=== PATIENT | female | born 1980 | race African-American/Black ===

== ENCOUNTER → 2016-10-12 | Outpatient (CLI) | payer MEDICAID ==
[2016-10-12 12:15] LABS: HEMATOCRIT 35.7 % (36.0-47.0); HEMOGLOBIN 11.9 g/dL (12.0-15.5); MEAN CORPUSCULAR HGB CONC 33.2 g/dL (32.0-36.0); MEAN CORPUSCULAR VOLUME 87 fl (80-97); RED CELL DISTRIBUTION WIDTH 16.4 % (11.5-14.0); WHITE BLOOD COUNT 6.6 10^3/uL (4.0-10.5)
[2016-10-12 12:33] LABS: ASPARTATE AMINO TRANSFERASE 20 U/L (14-36); CREATININE RESULT 0.46 mg/dL (0.52-1.25); LDH 318 U/L (313-618); URIC ACID 4.1 mg/dL (2.5-7.0)
== END ==
LOC: OD 11:21
PROVIDERS: ATTEND Registered Nurse Women's Health Care, Ambulatory
DX: O09.293 Supervision of pregnancy with other poor reproductive or obstetric history, third trimester (principal)
CPT/HCPCS: 36415; 82565; 83615; 84450; 84550; 85027

== ENCOUNTER 2016-10-16 12:24 | Outpatient (CLI) | payer MEDICAID ==
--- NOTE | 2016-10-16 16:01 | L&D Flow Sheet ---
LD Flowsheet Datetime Report Generated by CPN: 10/16/2016 16:00 Datetime: 10/16/2016 15:07 Communication: Report Given to @ Dr. Allen (Trinh Hitchcock RN) Communication Comments: Dr. Allen on unit reviewed OB history and reviewed FHT strip. Orders received if BPP 8/8, patient may be discharged home to self care and followup as previously scheduled. (Trinh Hitchcock RN) Communication Comments: Patient off unit to ultrasound via wheelchair (Trinh Hitchcock RN) Datetime: 10/16/2016 15:00 Monitor Mode: External (Trinh Naldo, RN) Frequency (min): x1 (Trinh Naldo, RN) Quality: Mild (Trinh [place], RN) Duration (sec): 50 (Trinh Naldo, RN) Resting Tone (Palpate): Relaxed (Trinh [place], RN) Contraction Comments: irregular (Trinh Naldo, RN) Monitor Mode: External US (Trinh [place], RN) FHR Baseline Rate : 140 (Trinh [place], RN) FHR Baseline Changes: No Baseline Change (Trinh [place], RN) Variability: Moderate 6-25 bpm (Trinh [place], RN) Accelerations: 15X15 (Trinh [place], RN) Decelerations: None (Trinh [place], RN) Datetime: 10/16/2016 14:31 Stage of : OB Triage (Trinh Hitchcock, RN) NBP Sys/Gayatri/Mean (mmHg): 120 (QS system process) : 75 (QS system process) : 93 (QS system process) Pulse: 85 (QS system process) Respirations: 16 (Trinh Naldo, RN) LaborFlag: OB Triage (QS system process) Datetime: 10/16/2016 14:30 Monitor Mode: External (Trinh [place], RN) Frequency (min): none (Trinh [place], RN) Resting Tone (Palpate): Relaxed (Trinh [place], RN) Contraction Comments: patient denies (Trinh [place], RN) Monitor Mode: External US (Trinh Hitchcock, RN) FHR Baseline Rate : 135 (Trinh [place], RN) FHR Baseline Changes: No Baseline Change (Trinh [place], RN) Variability: Moderate 6-25 bpm (Trinh [place], RN) Accelerations: 10X10 (Trinh [place], RN) Decelerations: None (Trinhtom Hitchcock, RN) Comments: reports positive movement (Trinh Hitchcock, RN) Datetime: 10/16/2016 14:29 IV/Blood Work: IV Started; IV Bolus Started; New IV Bag Hung; IV Bag Number @ 1 (Trinh Hitchcock, RN) Patient Position/Activity: Right Tilt; Semi-Fowlers (Trinh Hitchcock, RN) Datetime: 10/16/2016 14:00 Monitor Mode: External; Palpation (Trinh Hitchcock, JOHNNIE) Frequency (min): none (Trinh Hitchcock, RN) Resting Tone (Palpate): Relaxed (Trinh Hitchcock, RN) Contraction Comments: patient denies contractions. no contractions noted (Trinh Hitchcock, RN) Monitor Mode: External US (Trinh Hitchcock, RN) FHR Baseline Rate : 140 (Trinh Hitchcock, RN) FHR Baseline Changes: No Baseline Change (Trinh Hitchcock, RN) Variability: Moderate 6-25 bpm (Trinh Hitchcock, RN) Accelerations: 10X10 (Trinh Hitchcock, RN) Decelerations: None (Trinh Hitchcock, RN) Datetime: 10/16/2016 13:31 Stage of : OB Triage (Trinh Hitchcock RN) Provider Reviewed Strip: Yes (Trinh Hitchcock RN) Communication: RN Reviewed Strip; Report Given to @ Svitlana Mariano CNM (Trinh Hitchcock, RN) Notification Reason: Status Update; Status (Trinh Hitchcock RN) Communication Comments: Notified of OB history. (Trinh Hitchcock, RN) Datetime: 10/16/2016 13:15 Monitor Mode: External; Palpation (Trinh Hitchcock RN) Frequency (min): none (Trinh Hitchcock RN) Resting Tone (Palpate): Relaxed (Trinh Hitchcock RN) Contraction Comments: patient denies feeling contractions at this time. No contractions noted (Trinh Hitchcock RN) Monitor Mode: External US (Trinh Hitchcock RN) Monitor Interventions for FHR: Ultrasound Adjusted (Trinh Hitchcock RN) FHR Baseline Rate : 130 (Trinh Hitchcock RN) FHR Baseline Changes: No Baseline Change (Trinh Hitchcock RN) Variability: Moderate 6-25 bpm (Trinh Hitchcock RN) Accelerations: 15X15 (Trinh Hitchcock RN) Decelerations: None (Trinh Hitchcock RN) Comments: reports positive movement (Trinh Hitchcock RN) Datetime: 10/16/2016 12:47 Stage of : OB Triage (Trinh Hitchcock RN) NBP Sys/Gayatri/Mean (mmHg): 119 (QS system process) : 73 (QS system process) : 91 (QS system process) Pulse: 113 (QS system process) Respirations: 14 (Trinh Hitchcock RN) Temperature (F): 98.0 (Trinh Hitchcock RN) Temperature (C): 36.7 (QS system process) Temperature Route: Oral (Trinh Hitchcock RN) Pain Scale: 0 (Trinh Hitchcock RN) Pain Presence: None/Denies (Trinh Hitchcock RN) Pain Type: N/A (Trinh Hitchcock RN) Pain Goal: 1 (Trinh Hitchcock RN) Pain Relief Measures: Comfort Measures (Trinh Hitchcock RN) LaborFlag: OB Triage (QS system process)
--- NOTE | 2016-10-16 16:22 | Non Stress Test Report ---
Non Stress Test Datetime Report Generated by CPN: 10/16/2016 16:22 DEMOGRAPHIC EGA NST: 36.1 INDICATION Indication for Study: Ordered by Provider; Other MONITORING Monitor Explained: Monitor Explained; Test Explained; Patient Verbalized Understanding Time on Monitor: 10/16/2016 12:44 Time off Monitor: 10/16/2016 15:07 NST Duration: 143 NST INTERVENTIONS NST Interventions: PO Hydration; IV Fluids; Reposition Patient Physician Notified NST: Jackie Valenica, CNM/ Allen BABY A: [id number] BABY A Movement : Present Contraction Frequency : none FHR Baseline : 135 Accelerations : 15X15 Decelerations : None Variability : Moderate 6-25bpm NST Review: Meets Criteria for Reactive NST NST Review and Verified By : JOHNNIE Carbajal Results: Reactive NST REPORT Report Trigger: Send Report
== END 2016-10-16 16:13 | disposition home or self-care (01) ==
LOC: LC 12:24
PROVIDERS: ATTEND Obstetrics & Gynecology
PROC: 4A1HXCZ Monitoring of Products of Conception, Cardiac Rate, External Approach (ICD-10-PCS; principal; 2016-10-16)
DX: Z34.93 Encounter for supervision of normal pregnancy, unspecified, third trimester (principal); Z3A.36 36 weeks gestation of pregnancy
CPT/HCPCS: 59025; 76819

== ENCOUNTER 2016-10-28 17:28 | Outpatient (CLI) | payer MEDICAID ==
--- NOTE | 2016-10-28 18:00 | L&D Flow Sheet ---
LD Flowsheet Datetime Report Generated by CPN: 10/28/2016 18:00 Datetime: 10/28/2016 17:55 Uterine Activity Monitor Interventions for UA: [place] Adjusted (Leyda Vitrano, RN) Datetime: 10/28/2016 17:54 Vital Signs NBP Sys/Gayatri/Mean (mmHg): 117 (QS system process) : 65 (QS system process) : 84 (QS system process) Pulse: 90 (QS system process) LaborFlag: OB Triage (QS system process) Datetime: 10/28/2016 17:48 Pain Pain Scale: 4 (Leyda Vitrano, RN) Pain Presence: Constant (Leyda Vitrano, RN) Pain Type: Ache (Leyda Vitrano, RN) Pain Location: Head (Leyda Vitrano, RN) Pain Relief Measures: Comfort Measures (Leyda Vitrano, RN) Vaginal Exam Membrane Status: Intact (Leyda Vitrano, RN) Vaginal Bleeding: None (Leyda Vitrano, RN) Maternal Assessment Level of Consciousness: Fully Conscious (Leyda Vitrano, RN) DTR's/Clonus: DTRs 1+; No Clonus (Leyda Vitrano, RN) Headache: Frontal (Leyda Vitrano, RN) Breath Sounds, Left: Clear and Equal (Leyda Vitrano, RN) Breath Sounds, Right: Clear and Equal (Leyda Vitrano, RN) Nausea/Vomiting: Hx of Nausea/Vomiting (Annotations: Hx mild nausea; none currently) (Leyda Vitrano, RN) RUQ Epigastric Pain: Denies (Annotations: Reports hx increase in heartburn yesterday 10/27/16 unrelieved by Tums; denies problems today.) (Leyda Rodriguez RN) Patient Care Patient Position/Activity: Right Tilt; Semi-Fowlers (Leyda Rodriguez RN) Teaching Instructional Method: Verbal; Patient Instructed; Family/Support Person Instructed; Verbalized Understanding (Leyda Rodriguez RN) Plan of Care: Plan of Care Discussed (Leyda Rodriguez RN) Unit Routine: [place] to Room; Call Ramírez; Bed; Unit Personnel; Monitoring; Safety/Fall Risk Prevention; Bathroom Privileges (Leyda Rodriguez RN) LaborFlag: OB Triage (QS system process) Datetime: 10/28/2016 17:44 Communication Communication Comments: Dr. Hylton on unit, aware of pt arrival to unit. Orders for CBC, CMP, LDH, Uric acid. (Leyda Rodriguez RN)
[2016-10-28] MEDS ORDERED: OXYCODONE-ACETAMINOPHEN 5-325 MG TABLET ONE (18:03)
[2016-10-28] MEDS ORDERED: OXYCODONE-ACETAMINOPHEN 5-325 MG TABLET PO ONE (18:04)
[2016-10-28 18:30] LABS: APPEARANCE,URINE CLOUDY; BILIRUBIN,URINE NEGATIVE (NEGATIVE); GLUCOSE, URINE NEGATIVE (NEGATIVE); KETONES,URINE NEGATIVE (NEGATIVE); LEUKOCYTE ESTERASE,URINE TRACE (NEGATIVE); NITRITE,URINE NEGATIVE (NEGATIVE); PROTEIN,URINE NEGATIVE (NEGATIVE); URINE SPECIFIC GRAVITY 1.013; UROBILINOGEN,URINE NEGATIVE mg/dL (<2.0)
[2016-10-28 18:46] LABS: URINE BARBITURATES SCREEN NEGATIVE; URINE METHADONE SCREEN NEGATIVE; URINE OPIATES LOW NEGATIVE; URINE PHENCYCLIDINE SCREEN NEGATIVE
[2016-10-28 19:07] LABS: ABSOLUTE EOSINOPHILS # (AUTO) 0.1 10^3/uL (0.0-0.6); ABSOLUTE LYMPHOCYTES (AUTO) 1.8 10^3/uL (0.5-4.7); ABSOLUTE MONOCYTES (AUTO) 0.6 10^3/uL (0.1-1.4); ABSOLUTE NEUT (AUTO) 4.3 10^3/uL (1.7-8.2); ALANINE AMINOTRANSFERASE 26 U/L (9-52); ALBUMIN 3.2 g/dL (3.5-5.0); ALKALINE PHOSPHATASE 167 U/L (38-126); ANION GAP 12 (5-19); ASPARTATE AMINO TRANSFERASE 21 U/L (14-36); BASOPHILS % (AUTO) 0.3 % (0-2); BILIRUBIN,TOTAL 0.3 mg/dL (0.2-1.3); BLOOD UREA NITROGEN 7 mg/dL (7-20); CALCIUM 9.5 mg/dL (8.4-10.2); CARBON DIOXIDE 20 mmol/L (22-30); CHLORIDE 107 mmol/L (98-107); GLUCOSE 82 mg/dL (75-110); HEMATOCRIT 35.4 % (36.0-47.0); HEMOGLOBIN 11.4 g/dL (12.0-15.5); HGB HCT DIFFERENCE -1.2; LDH 334 U/L (313-618); LYMPHOCYTES % (AUTO) 26.4 % (13-45); MEAN CORPUSCULAR HEMOGLOBIN 28.8 pg (27.0-33.4); MEAN CORPUSCULAR HGB CONC 32.3 g/dL (32.0-36.0); MEAN CORPUSCULAR VOLUME 89 fl (80-97); MONOCYTES % (AUTO) 8.9 % (3-13); RED BLOOD COUNT 3.96 10^6/uL (3.72-5.28); RED CELL DISTRIBUTION WIDTH 16.5 % (11.5-14.0); SEGMENTED NEUTROPHILS % (AUTO) 62.4 % (42-78); SODIUM 138.5 mmol/L (137-145); TOTAL PROTEIN 6.7 g/dL (6.3-8.2); URIC ACID 3.9 mg/dL (2.5-7.0); WHITE BLOOD COUNT 6.9 10^3/uL (4.0-10.5)
== END 2016-10-28 19:43 | disposition home or self-care (01) ==
LOC: LC 17:28
PROVIDERS: ATTEND Specialist
PROC: 4A1HXCZ Monitoring of Products of Conception, Cardiac Rate, External Approach (ICD-10-PCS; principal; 2016-10-28)
DX: O47.1 False labor at or after 37 completed weeks of gestation (principal); O09.523 Supervision of elderly multigravida, third trimester; Z3A.38 38 weeks gestation of pregnancy
CPT/HCPCS: 36415; 59025; 80053; 80307; 81001; 83615; 84550; 85025

== ENCOUNTER 2016-11-05 08:33 | Inpatient (IN) | payer MEDICAID ==
[2016-11-04 10:45] LABS: ABSOLUTE EOSINOPHILS # (AUTO) 0.2 10^3/uL (0.0-0.6); ABSOLUTE LYMPHOCYTES (AUTO) 1.6 10^3/uL (0.5-4.7); ABSOLUTE MONOCYTES (AUTO) 0.5 10^3/uL (0.1-1.4); ABSOLUTE NEUT (AUTO) 4.3 10^3/uL (1.7-8.2); BASOPHILS % (AUTO) 0.6 % (0-2); EOSINOPHILS % (AUTO) 2.4 % (0-6); HEMATOCRIT 36.1 % (36.0-47.0); HEMOGLOBIN 12.1 g/dL (12.0-15.5); HGB HCT DIFFERENCE 0.2; LYMPHOCYTES % (AUTO) 24.1 % (13-45); MEAN CORPUSCULAR HGB CONC 33.4 g/dL (32.0-36.0); MEAN CORPUSCULAR VOLUME 87 fl (80-97); MONOCYTES % (AUTO) 7.3 % (3-13); RED BLOOD COUNT 4.17 10^6/uL (3.72-5.28); RED CELL DISTRIBUTION WIDTH 16.4 % (11.5-14.0); SEGMENTED NEUTROPHILS % (AUTO) 65.6 % (42-78); WHITE BLOOD COUNT 6.6 10^3/uL (4.0-10.5)
[2016-11-04 11:00] LABS: APPEARANCE,URINE CLOUDY; BILIRUBIN,URINE NEGATIVE (NEGATIVE); GLUCOSE, URINE NEGATIVE (NEGATIVE); KETONES,URINE NEGATIVE (NEGATIVE); LEUKOCYTE ESTERASE,URINE NEGATIVE (NEGATIVE); NITRITE,URINE NEGATIVE (NEGATIVE); PROTEIN,URINE 30 mg/dL (NEGATIVE); UROBILINOGEN,URINE NEGATIVE mg/dL (<2.0)
[2016-11-04 11:32] LABS: URINE BARBITURATES SCREEN NEGATIVE; URINE METHADONE SCREEN NEGATIVE; URINE OPIATES LOW NEGATIVE; URINE PHENCYCLIDINE SCREEN NEGATIVE
[~2016-11-05 08:33] MED LIST: CEFAZOLIN SODIUM 1 GM in DEXTROSE 5%-WATER 50 ML IV PRN; LACTATED RINGERS 1000 ML IV PRN; LIDOCAINE 0.5% INJ-PF (5 MG/ML) 50 ML SDV SUBCUT PRN; RINGERS SOLUTION,LACTATED 1,500 ML IV PRN
[2016-11-05] MEDS ORDERED: CITRIC ACID/SODIUM CITRATE ORAL SOLN 15 ML UDCUP PO PRN (09:45)
[2016-11-05] MEDS ORDERED: CEFAZOLIN 1 GM/D5W RTU 1 GM/50 ML RTUPB IV ONE (11:11)
[2016-11-05] MEDS ORDERED: FENTANYL CITRATE INJ/PF 100 MCG/2 ML AMPUL ONE ×2 (13:02→15:40)
[2016-11-05] MEDS ORDERED: OXYTOCIN 10 UNIT/ML VIAL ONE (13:02)
[2016-11-05] MEDS ORDERED: MIDAZOLAM 2 MG/2 ML INJ ONE (13:02)
[2016-11-05] MEDS ORDERED: ACETAMINOPHEN 100 ML IV ONE (13:03)
[2016-11-05] MEDS ORDERED: OXYTOCIN/NORMAL SALINE 20 UNIT/1,000 ML RTUINJ ONE (13:03)
[2016-11-05] MEDS ORDERED: DIPHENHYDRAMINE HCL 50 MG/ML VIAL IV PRN (13:38)
[2016-11-05] MEDS ORDERED: PROMETHAZINE HCL INJ 25 MG/1 ML VIAL IV PRN ×2 (13:38)
[2016-11-05] MEDS ORDERED: OXYCODONE-ACETAMINOPHEN 5-325 MG TABLET PO PRN ×3 (13:38→15:27)
[2016-11-05] MEDS ORDERED: MORPHINE SULFATE 10 MG/ML INJ IV PRN (13:38)
[2016-11-05] MEDS ORDERED: FENTANYL CITRATE INJ/PF 100 MCG/2 ML AMPUL IV PRN ×3 (13:38)
[2016-11-05] MEDS ORDERED: MEPERIDINE HCL/PF INJ 25 MG/1 ML DISP.SYRIN IV PRN (13:38)
--- NOTE | 2016-11-05 14:00 | Non Stress Test Report ---
Non Stress Test Datetime Report Generated by CPN: 11/05/2016 14:00 DEMOGRAPHIC Test Number: 3 EGA NST: 37.6 INDICATION Indication for Study: Ordered by Provider MONITORING Monitor Explained: Monitor Explained; Test Explained; Patient Verbalized Understanding Time on Monitor: 10/28/2016 17:48 Time off Monitor: 10/28/2016 18:36 NST Duration: 48 NST INTERVENTIONS NST Interventions: PO Hydration; Reposition Patient Physician Notified NST: Dr. Neilsen BABY A: [id number] BABY A Movement : Present Contraction Frequency : Occasional FHR Baseline : 140 Accelerations : 15X15 Decelerations : None Variability : Moderate 6-25bpm NST Review: Meets Criteria for Reactive NST NST Review and Verified By : Ryan Carter RNC NST Results: Reactive NST REPORT Report Trigger: Send Report
[2016-11-05] MEDS ORDERED: DIPH/PERTUSS(ACELL)/TETANUS VAC/PF 0.5 ML SYR (>=10YO) IM PRN (15:27)
[2016-11-05] MEDS ORDERED: PROMETHAZINE HCL INJ 25 MG/1 ML VIAL IM PRN (15:27)
[2016-11-05] MEDS ORDERED: MEASLES,MUMPS&RUBELLA VACC/PF 0.5 ML VIAL SUBCUT PRN (15:27)
[2016-11-05] MEDS ORDERED: OXYTOCIN/NORMAL SALINE 20 UNIT/1,000 ML RTUINJ INJ PRN (15:27)
[2016-11-05] MEDS ORDERED: ACETAMINOPHEN 325 MG TABLET PO PRN (15:27)
[2016-11-05] MEDS ORDERED: SIMETHICONE 80 MG TAB.CHEW PO PRN (15:27)
[2016-11-05] MEDS ORDERED: RINGERS SOLUTION,LACTATED 1,000 ML IV PRN (15:28)
--- NOTE | 2016-11-05 16:01 | L&D Flow Sheet ---
LD Flowsheet Datetime Report Generated by CPN: 11/05/2016 16:00 Datetime: 11/05/2016 15:39 Pulse: 73 (QS system process) SpO2 (%): 100 (QS system process) Pain Scale: 2 (Kg Cuencaeet, RN) Pain Presence: Constant (Kg Cuencaeet, RN) Pain Type: Ache (Kg Cuencaeet, RN) Pain Location: Abdomen (Kg Cuencaeet, RN) Pain Relief Measures: Pain Medication Given (Kg Cuencaeet, RN) Datetime: 11/05/2016 15:38 NBP Sys/Gayatri/Mean (mmHg): 120 (QS system process) : 70 (QS system process) : 89 (QS system process) Pulse: 67 (QS system process) Datetime: 11/05/2016 15:34 Pulse: 54 (QS system process) SpO2 (%): 100 (QS system process) Datetime: 11/05/2016 15:29 Pulse: 59 (QS system process) SpO2 (%): 100 (QS system process) Datetime: 11/05/2016 15:24 Pulse: 57 (QS system process) SpO2 (%): 100 (QS system process) Datetime: 11/05/2016 15:23 NBP Sys/Gayatri/Mean (mmHg): 114 (QS system process) : 83 (QS system process) : 94 (QS system process) Pulse: 61 (QS system process) Datetime: 11/05/2016 15:20 Stage of : Recovery (Kg Lopez, JOHNNIE) Respirations: 18 (Kg Lopez, JOHNNIE) Pain Scale: 1 (Kg Lopez, JOHNNIE) Pain Presence: Constant (Kg Lopez, JOHNNIE) Pain Type: Ache (Kg Lopez RN) Pain Location: Abdomen (Kg Lopez RN) Pain Relief Measures: Comfort Measures (Kg Lopez RN) Datetime: 11/05/2016 15:19 Pulse: 64 (QS system process) SpO2 (%): 100 (QS system process) Datetime: 11/05/2016 15:14 Pulse: 65 (QS system process) SpO2 (%): 98 (QS system process) Datetime: 11/05/2016 15:09 Pulse: 71 (QS system process) SpO2 (%): 99 (QS system process) Datetime: 11/05/2016 15:08 NBP Sys/Gayatri/Mean (mmHg): 111 (QS system process) : 62 (QS system process) : 81 (QS system process) Pulse: 71 (QS system process) Datetime: 11/05/2016 15:04 Pulse: 69 (QS system process) SpO2 (%): 100 (QS system process) Datetime: 11/05/2016 15:00 Stage of : Recovery (Kg Lopez RN) Respirations: 16 (Kg Lopez RN) Temperature (F): 97.6 (Kg Lopez RN) Temperature (C): 36.4 (QS system process) Pain Presence: None/Denies (Kg Jessica, RN) Datetime: 11/05/2016 14:59 Pulse: 66 (QS system process) SpO2 (%): 100 (QS system process) Datetime: 11/05/2016 14:54 Pulse: 72 (QS system process) SpO2 (%): 99 (QS system process) Datetime: 11/05/2016 14:53 NBP Sys/Gayatri/Mean (mmHg): 97 (QS system process) : 53 (QS system process) : 70 (QS system process) Pulse: 65 (QS system process) Datetime: 11/05/2016 14:49 Pulse: 85 (QS system process) SpO2 (%): 98 (QS system process) Datetime: 11/05/2016 14:45 Stage of : Recovery (Kg Jessica, RN) Respirations: 16 (Kg Jessica, RN) Pain Presence: None/Denies (Kg Jessica, RN) Datetime: 11/05/2016 14:44 Pulse: 83 (QS system process) SpO2 (%): 98 (QS system process) Datetime: 11/05/2016 14:39 Pulse: 70 (QS system process) SpO2 (%): 98 (QS system process) Datetime: 11/05/2016 14:38 NBP Sys/Gayatri/Mean (mmHg): 100 (QS system process) : 58 (QS system process) : 74 (QS system process) Pulse: 77 (QS system process) Datetime: 11/05/2016 14:34 Pulse: 93 (QS system process) SpO2 (%): 99 (QS system process) Datetime: 11/05/2016 14:30 Stage of : Recovery (Kg Jessica, RN) Respirations: 16 (Kg Jessica, RN) Pain Presence: None/Denies (Kg Jessica, RN) Datetime: 11/05/2016 14:29 Pulse: 81 (QS system process) SpO2 (%): 98 (QS system process) Datetime: 11/05/2016 14:27 Pulse: 77 (QS system process) SpO2 (%): 94 (QS system process) Datetime: 11/05/2016 14:24 Pulse: 68 (QS system process) SpO2 (%): 99 (QS system process) Datetime: 11/05/2016 14:20 NBP Sys/Gayatri/Mean (mmHg): 107 (QS system process) : 62 (QS system process) : 76 (QS system process) Pulse: 94 (QS system process) Datetime: 11/05/2016 14:19 Pulse: 71 (QS system process) SpO2 (%): 90 (QS system process) Datetime: 11/05/2016 14:16 Pulse: 80 (QS system process) SpO2 (%): 93 (QS system process) Datetime: 11/05/2016 14:15 Stage of : Recovery (Kg Lopez RN) NBP Sys/Gayatri/Mean (mmHg): 106 (QS system process) : 57 (QS system process) : 76 (QS system process) Pulse: 75 (QS system process) Respirations: 16 (Kg Lopez RN) Temperature Route: Oral (Kg Lopez RN) Pain Presence: None/Denies (Kg Lopez RN) Datetime: 11/05/2016 14:14 Pulse: 79 (QS system process) SpO2 (%): 100 (QS system process) Datetime: 11/05/2016 14:12 NBP Sys/Gayatri/Mean (mmHg): 107 (QS system process) : 59 (QS system process) : 76 (QS system process) Pulse: 68 (QS system process) Datetime: 11/05/2016 14:10 Stage of : Recovery (Ingrid Camp, RNC) Datetime: 11/05/2016 14:09 Pulse: 84 (QS system process) SpO2 (%): 97 (QS system process) LaborFlag: OB Triage (QS system process) Datetime: 11/05/2016 14:07 Temperature (F): 96.8 (Kg Lopez RN) Temperature (C): 36.0 (QS system process) LaborFlag: OB Triage (QS system process)
[2016-11-05] MEDS ORDERED: ONDANSETRON HCL INJ/PF 4 MG/2 ML SDV ONE (16:17)
[2016-11-05] MEDS ORDERED: PHENYLEPHRINE HCL INJ/PF 10 MG/1 ML SDV ONE (16:17)
[2016-11-05] MEDS ORDERED: KETOROLAC TROMETHAMINE 60 MG/2 ML SDV ONE (16:17)
[2016-11-05] MEDS: HYDROMORPHONE HCL INJ/PF 2 MG/ML AMPULE IV PRN ×2 (17:01→20:13)
[2016-11-05] MEDS: DOCUSATE SODIUM 100 MG CAPSULE PO SCH (18:05)
[2016-11-05] MEDS: IBUPROFEN 800 MG TABLET PO SCH (18:06)
[2016-11-05] MEDS: KETOROLAC TROMETHAMINE INJ/PF 30 MG/1 ML SDV IV SCH (21:32)
[2016-11-06] MEDS: OXYCODONE-ACETAMINOPHEN 5-325 MG TABLET PO PRN ×4 (02:50→19:40)
[2016-11-06] MEDS: IBUPROFEN 800 MG TABLET PO SCH ×4 (04:52→18:01)
--- NOTE | 2016-11-06 06:01 | L&D Current Admission ---
Current Admit Datetime Report Generated by CPN: 11/06/2016 06:00 ADMISSION INFORMATION Current Admit Date/Time: 07/26/2016 23:20 (07/26/2016 23:20:Sandra Crespo RN) Reason for Admission: Observation (07/26/2016 23:20:Sandra Crespo RN) Other Reason for Admission: shortened cervix on Magnesium (07/26/2016 23:20:Sandra Crespo RN) Chief Complaint: Headache (10/28/2016 17:48:Leyda Rodriguez RN) Medications During : Vitamin (07/26/2016 23:20:Sandra Crespo RN) Meds During -Oth: on Magnesium for shortened cervix (07/26/2016 23:20:Sandra Crespo RN) EGA per Dates: 24.3 (07/26/2016 23:20:QS system process) Method of Arrival: Wheelchair (07/26/2016 23:20:Sandra Crespo RN) Admitted From: Home (07/26/2016 23:20:Sandra Crespo RN) Reason for Induction: Not Applicable (07/26/2016 23:20:Sandra Crespo RN) Records Available: No (07/26/2016 23:20:Sandra Crespo RN) General Admission Information: Reviewed (07/26/2016 23:20:Sandra Crespo RN) General Admission Reviewed By: JOHNNIE Crespo (07/26/2016 23:20:Sandra Crespo RN) BELONGINGS/ADVANCED DIRECTIVES Other Belongings: see valuables (07/26/2016 23:20:Sandra Crespo RN) Disposition of Belongings: Kept with Patient (07/26/2016 23:20:Sandra Crespo RN) Advance Direct for Healthcare: No, but Requests Information (07/26/2016 23:20:Sandra Crespo RN) Indicate Intent if Not With Pt: patient access notified of request for info (07/26/2016 23:20:Sandra Crespo RN) Durable Power of [place] Needle Loom: No (07/26/2016 23:20:Sandra Crespo RN) Living Will: No (07/26/2016 23:20:Sandra Crespo RN) Organ Donor: Yes (07/26/2016 23:20:Sandra Crespo RN) Pt Rights Information Given: Yes (07/26/2016 23:20:Sandra Crespo RN) Pt Understands Pt Rights: Yes (07/26/2016 23:20:Sandra Crespo RN) Patient Rights Comments: Given in patient access (07/26/2016 23:20:Sandra Crespo RN) LEARNING ASSESSMENT Knowledge Level: Understands L_D Process; Understands Care Activities; Had Pre-Hospital Education; Understands Diagnosis (07/26/2016 23:20:Sandra Crespo RN) Barriers to Learning: None (07/26/2016 23:20:Sandra Crespo RN) Learning Readiness: Motivated (07/26/2016 23:20:Sandra Crespo RN) Learns Best By: 1 to 1 Instruction; Reading; Videos; Group Discussion; Demonstration (07/26/2016 23:20:Sandra Crespo RN) Learning Needs: Labor and Delivery Process; Pain Management; Symptoms to Report; Treatment Plan; Medication; Diagnosis; Nutrition; Equipment; Infant Care; Community Resources (07/26/2016 23:20:Sandra Crespo RN) DOMESTIC VIOLANCE SCREENING Dom Viol Threatened/Hurt: No (07/26/2016 23:20:Sandra Crespo RN) Hx of Abuse/Neglect past 2yrs: No (07/26/2016 23:20:Sandra Crespo RN) Feel Unsafe Going Home: No (07/26/2016 23:20:Sandra Crespo RN) Addt'l Observ Indicating Abuse: No (07/26/2016 23:20:Sandra Crespo RN) Reason Unable to Complete Screen: N/A, Screen Completed (07/26/2016 23:20:Sandra Crespo RN) Considered Personal Harm/Suicide: No (07/26/2016 23:20:Sandra Crespo RN) NUTRITIONAL/FUNCTIONAL SCREENING Problem with Appetite >5 Days: No (07/26/2016 23:20:Sandra Crespo RN) Chew/Swallow Difficulties: No (07/26/2016 23:20:Sandra Crespo RN) Inappropriate Wt Gain/Loss: No (07/26/2016 23:20:Sandra Crespo RN) Presence Skin Breakdown/Ulcer: No (07/26/2016 23:20:Sandra Crespo RN) Special Diet: No (07/26/2016 23:20:Sandra Crespo RN) Pt Requests Donation Worker Visit: No (07/26/2016 23:20:Sandra Crespo RN) Hx of Any of the Following?: N/A (07/26/2016 23:20:Sandra Crespo RN) New Diagnosis of: N/A (07/26/2016 23:20:Sandra Crespo RN) Requires Assist w/Ambulation: No (07/26/2016 23:20:Sandra Crespo RN) Uses Assist Device to Ambulate: No (07/26/2016 23:20:Sandra Crespo RN) Pt Requires Help w/ADL's: No (07/26/2016 23:20:Sandra Crespo RN)
--- NOTE | 2016-11-06 06:01 | L&D General Admission ---
General Admit Datetime Report Generated by CPN: 11/06/2016 06:00 INFORMATION Patient Age: 34 (03/04/2015 11:27:QS system process) EDC: 11/12/2016 00:00 (03/04/2015 11:44:Kalani Aldana RN) : 3 (03/04/2015 11:44:Sandra Crespo RN) Para: 1 (10/16/2016 16:18:Trinh Hitchcock RN) Term: 0 (03/04/2015 11:44:Mary Eric RN) : 1 (03/04/2015 11:44:Sandra Crespo RN) Spontaneous Abortions: 1 (03/04/2015 11:44:Sandra Crespo RN) Induced Abortions: 0 (03/04/2015 11:44:Mary Eric RN) Livin (03/04/2015 11:44:Sandra Crespo RN) Cesareans: 0 (03/04/2015 11:44:Mary Eric RN) VBACs: 0 (03/04/2015 11:44:Mary Eric RN) Ectopic: 0 (03/04/2015 11:44:Mary Eric RN) Multiple Births: 0 (03/04/2015 11:44:Mary Eric RN) Baby, Number in Womb: 1 (09/18/2016 18:46:Koki Dempsey RN) CARE Primary Damascener: Other-Annotate (03/04/2015 11:44:Kalani Aldana RN) Month of 1st Visit: 07/19 (03/04/2015 11:44:Leyda Rodriguez RN) Adequate Care: No (03/04/2015 11:44:Leyda Rodriguez RN) Height (in): 63 (11/05/2016 11:13:QS system process) ALLERGIES Medication Allergy: No (03/04/2015 11:44:Mary Eric RN) Medication Allergies: No Known Allergies (10/30/2016) (11/05/2016 09:26:QS system process) Latex Allergy: No Latex Allergies (03/04/2015 11:44:Mary Eric RN) Food Allergies: N/A (03/04/2015 11:44:Leyda Rodriguez RN) Environmental Allergies: N/A (03/04/2015 11:44:Leyda Rodriguez RN) COMMUNICATION Primary Language: Wallisian (03/04/2015 11:44:Mary Eric RN) Medical Tx Preferred Language: Wallisian (03/04/2015 11:44:Mary Eric RN) Wallisian Communication Ability: Speaks Wallisian; Reads Wallisian (03/04/2015 11:44:Mary Eric RN) Communication Barrier(s): None (03/04/2015 11:44:Mary Eric RN) DEMOGRAPHICS Address: [address] [place] [id number] (08/02/2016 11:23:QS system process) Zipcode: [address] (08/02/2016 11:23:QS system process) Home (10/28/2016 17:28:QS system process) SSN: [id number] (03/04/2015 11:27:QS system process) Next of Kin Name: BAYRON GARCIA (07/26/2016 21:19:QS system process) Next of Kin (10/16/2016 12:25:QS system process) Next of Kin Relationship: SPO (07/26/2016 21:19:QS system process) Date of : 1980 (03/04/2015 11:27:QS system process) Marital Status: (03/04/2015 11:27:QS system process) Sex: Female (03/04/2015 11:27:QS system process) Race: (03/04/2015 11:27:QS system process) Ethnicity: Non- or (03/04/2015 11:27:QS system process) Voodoo: Worship (03/04/2015 11:27:QS system process) FOB Involved: Yes (03/04/2015 11:44:KAREN Moseley) Father of Baby Name: Bayron Garcia (03/04/2015 11:44:KAREN Moseley) DRUG AND ALCOHOL USE Alcohol: No (03/04/2015 11:44:Mary Eric RN) Cigarettes: Never Smoker. [id number] (03/04/2015 11:44:Mary Eric RN) Marijuana: No (03/04/2015 11:44:Mary Eric RN) Marijuana Comments: positive on 07/26/16 patient denies (03/04/2015 11:44:Sandra Crespo RN) Cocaine: No (03/04/2015 11:44:Mary Eric RN) Other Illicit Drugs: No (03/04/2015 11:44:Mary Eric RN) VACCINE HISTORY Influenza Vaccine: No (03/04/2015 11:44:Sandra Crespo RN) Pneumococcal Vaccine: No (03/04/2015 11:44:Mary Eric RN) Tetanus Vaccine: Yes (03/04/2015 11:44:Mary Eric RN) Tetanus Date: 2013 (03/04/2015 11:44:Sandra Crespo RN) Tdap Vaccine: Yes (03/04/2015 11:44:Mary Eric RN) Tdap Date: 2013 (03/04/2015 11:44:Sandra Crespo RN) Hepatitis B Vaccine: Yes (03/04/2015 11:44:Mary Eric RN) Electrical High Tension Tester: [facility] (03/04/2015 11:44:Mary Eric RN) Feeding Preference: Breast (03/04/2015 11:44:Beth Mukherjee RN) Benefit of Breast Feed Discussed: Yes (03/04/2015 11:44:Mary Eric RN) Circumcision: N/A (03/04/2015 11:44:Mary Eric RN) Classes Attended: No (03/04/2015 11:44:Sandra Crespo RN) Tubal Ligation: No (03/04/2015 11:44:Mary Eric RN) Tubal Authorization Signed: N/A (03/04/2015 11:44:Mary Eric RN) Consent: N/A (03/04/2015 11:44:Mary Eric RN) Consent Signed: N/A (03/04/2015 11:44:Mary Eric RN) Pain Management Plans: Epidural; Spinal (03/04/2015 11:44:Sandra Crespo RN) Other Pain Management Plans: plans on csection (03/04/2015 11:44:Sandra Crespo RN) Plans for Labor and Delivery: None (03/04/2015 11:44:Mary Eric RN) Support Person: Bayron Garcia (03/04/2015 11:44:Mary Eric RN) Support Person Relationship: (03/04/2015 11:44:Mary Eric RN) Cultural/Spritual Practice: No (03/04/2015 11:44:Mary Eric RN) Spir/Cult Dietary Needs: No (03/04/2015 11:44:Mary Eric RN) LIVING SITUATION/DISCHARGE PLAN Living Arrangements: House (03/04/2015 11:44:Mary Eric RN) Adequate Access to:: Electric; Heat; Refrigeration; Plumbing/Running water; Phone; Transportation (03/04/2015 11:44:Mary Eric RN) WIC Program: Needs referral (03/04/2015 11:44:Sandra Crespo RN) Discharge Workers Compensation Attorney Person: Bayron Garcia (03/04/2015 11:44:Mary Eric RN) Person to Help after Discharge: Bayron Garcia (03/04/2015 11:44:Mary Eric RN) Currently Using Commun Resources: No (03/04/2015 11:44:Sandra Crespo RN) Outside Agency/Meat Pumper: Yes (03/04/2015 11:44:Mary Eric RN) Car Seat for Discharge: Yes (03/04/2015 11:44:Mary Eric RN) Adoption Requested: No (03/04/2015 11:44:Mary Eric RN) Pt Contact w/ Post : N/A (03/04/2015 11:44:Mary Eric RN) LABS Blood Type: A Positive (03/04/2015 11:44:Sandra Crespo RN) Hemoglobin: 12.1 (11/04/2016 09:35:QS system process) Hematocrit: 36.1 (11/04/2016 09:35:QS system process) MCV: 87 (11/04/2016 09:35:QS system process) Group Beta Strep: 1 NO GROUP B STREPTOCOCCUS RECOVERED (07/26/2016 22:22:QS system process) HIV Results: NEGATIVE (07/26/2016 22:30:QS system process) Rubella: POSITIVE NEGATIVE IF LESS THAN OR EQUAL TO 9.99 IU/mL POSITIVE IF GREATER THAN OR EQUAL TO 10.0 IU/mL (07/26/2016 22:30:QS system process) Rubella Titer: 40.20 (07/26/2016 22:30:QS system process) OB/PREVIOUS HISTORY Previous Procedures: Ultrasound; Doppler Flow Study (03/04/2015 11:44:Sandra Crespo RN) Current Procedures: Ultrasound (03/04/2015 11:44:Mary Eric RN) History of Previous : Yes (03/04/2015 11:44:Sandra Crespo RN) History of Gestational Diabetes: No (03/04/2015 11:44:Mary Eric RN) History of PIH: No (03/04/2015 11:44:Mary Eric RN) History of Incompetent Cervix: Yes (03/04/2015 11:44:Mary Eric RN) History of Placenta Previa/Abrup: No (03/04/2015 11:44:Mary Eric RN) History of Macrosomia: No (03/04/2015 11:44:Mary Eric RN) History of IUGR: Yes (03/04/2015 11:44:Mary Eric RN) History of Hemorrhage: No (03/04/2015 11:44:Mary Eric RN) History of Loss/Stillborn: No (03/04/2015 11:44:Mary Eric RN) History of : No (03/04/2015 11:44:Mary Eric RN) History of D (Rh) Sensitization: No (03/04/2015 11:44:Mary Eric RN) History Recurrent Loss/Stillborn: No (03/04/2015 11:44:Mary Eric RN) History Depression/PP Depression: Yes (03/04/2015 11:44:Sandra Crespo RN) History of Uterine Anomaly/SARAH: No (03/04/2015 11:44:Mary Eric RN) History of Infertility: No (03/04/2015 11:44:Mary Eric RN) History of ART Treatment: No (03/04/2015 11:44:Mary Eric RN) History of SARAH: No (03/04/2015 11:44:Mary Eric RN) Comments Obstetrical History: G1- 2008 G2- March 2015 IUGR, reverse dopplers, c/s at 29 weeks and Cervical polyp-pt taking vaginal progesterone nightly G3- current , didn't know until 07/26 at 24 weeks; Sees MFM; Scheduled C/S (03/04/2015 11:44:Leyda Rodriguez RN) MEDICAL HISTORY Med Hx Diabetes: No (03/04/2015 11:44:Mary Eric RN) Med Hx Hypertension: Yes (03/04/2015 11:44:Sandra Crespo RN) Med Hx Heart Disease: No (03/04/2015 11:44:Mary Eric RN) Med Hx Autoimmune Disorder: No (03/04/2015 11:44:Mary Eric RN) Med Hx Kidney Disease/UTI: No (03/04/2015 11:44:Mary Eric RN) Med Hx Neurologic/Epilepsy: No (03/04/2015 11:44:Mary Eric RN) Med Hx Psychiatric Disorders: Yes (03/04/2015 11:44:Sandra Crespo RN) Med Hx Hepatitis/Liver Disease: No (03/04/2015 11:44:Mary Eric RN) Med Hx Varicosities/Phlebitis: No (03/04/2015 11:44:Mary Eric RN) Med Hx Thyroid Dysfunction: No (03/04/2015 11:44:Mary Eric RN) Med Hx Trauma/Violence: No (03/04/2015 11:44:Mary Eric RN) Med Hx Blood Transfusion: No (03/04/2015 11:44:Mary Eric RN) Med Hx Pulmonary (Asthma,TB): Yes (03/04/2015 11:44:Sandra Crespo RN) Med Hx Breast: No (03/04/2015 11:44:Mary Eric RN) Med Hx [employer] Surgery: No (03/04/2015 11:44:Mary Eric RN) Med Hx Hospitalization/Surgery: Yes (03/04/2015 11:44:Sandra Crespo RN) Med Hx Anesthetic Complications: No (03/04/2015 11:44:Mary Eric RN) Med Hx Abnormal Pap Smear: No (03/04/2015 11:44:Mary Eric RN) Other Medical Diseases: Yes (03/04/2015 11:44:Sandra Crespo RN) Med Hx Significant Family Hx: No (03/04/2015 11:44:Mary Eric RN) Details of Med/Surg Hx: c/s in 2013, PCOS, polyp on cervix, positive marijuana on drug screen, debridement on left ankle, anemia in past was on iron, preeclampsia when , bipolar, depression, rheumatic fever as a kid (03/04/2015 11:44:Leyda Rodriguez RN) INFECTIOUS HISTORY Inf Hx Gonorrhea: No (03/04/2015 11:44:Mary Eric RN) Inf Hx Chlamydia: No (03/04/2015 11:44:Mary Eric RN) Inf Hx Syphilis: No (03/04/2015 11:44:Mary Eric RN) Inf Hx HIV/AIDS: No (03/04/2015 11:44:Mary Eric RN) Inf Hx Human Papilloma Virus: No (03/04/2015 11:44:Mary Eric RN) Inf Hx Pt/Partner Genital Herpes: No (03/04/2015 11:44:Mary Eric RN) Inf Hx Tuberculosis/Exposure: No (03/04/2015 11:44:Mary Eric RN) Inf Hx Hepatitis B,C: No (03/04/2015 11:44:Mary Eric RN) Inf Hx Rash or Viral Illness: No (03/04/2015 11:44:Mary Eric RN) GENETIC HISTORY Gen Hx Age >=35 at BERE: No (03/04/2015 11:44:Mary Eric RN) Gen Hx Thalassemia: No (03/04/2015 11:44:Mary Eric RN) Gen Hx Congenital Heart Defect: Unknown (03/04/2015 11:44:Sandra Crespo RN) Gen Hx Neural Tube Defect: No (03/04/2015 11:44:Mary Eric RN) Gen Hx Down's Syndrome: No (03/04/2015 11:44:Mary Eric RN) Gen Hx Abdi-Sachs: No (03/04/2015 11:44:Mary Eric RN) Gen Hx Alisa: No (03/04/2015 11:44:Mary Eric RN) Gen Hx Familial Dysautonomia: No (03/04/2015 11:44:Mary Eric RN) Gen Hx Sickle Cell Disease/Trait: No (03/04/2015 11:44:Mary Eric RN) Gen Hx Hemophilia/Blood Disorder: No (03/04/2015 11:44:Mary Eric RN) Gen Hx Muscular Dystrophy: No (03/04/2015 11:44:Mary Eric RN) Gen Hx Cystic Fibrosis: No (03/04/2015 11:44:Mary Eric RN) Gen Hx [place] Chorea: No (03/04/2015 11:44:Mary Eric RN) Gen Hx Mental Retardation/Autism: No (03/04/2015 11:44:Mary Eric RN) Gen Hx Tested for Fragile X: No (03/04/2015 11:44:Mary Eric RN) Gen Hx Other Inher/Chromosomal: No (03/04/2015 11:44:Mary Eric RN) Gen Hx Maternal Metabolic DO: No (03/04/2015 11:44:Mary Eric RN) Gen Hx Pt Father or FOB Defect: No (03/04/2015 11:44:Mary Eric RN) Gen Hx Other Genetic History: No (03/04/2015 11:44:Mary Eric RN) Gen Hx Drugs/Meds since LMP: Yes (03/04/2015 11:44:Sandra Crespo RN) Gen Hx Medications: Tylenol (03/04/2015 11:44:Sandra Crespo RN) Details of Genetic History: daughter had heart murmur and valve constriction (03/04/2015 11:44:Sandra Crespo RN)
[2016-11-06] MEDS: KETOROLAC TROMETHAMINE INJ/PF 30 MG/1 ML SDV IV SCH (06:56)
[2016-11-06 07:16] LABS: HEMATOCRIT 29.8 % (36.0-47.0); HEMOGLOBIN 10.1 g/dL (12.0-15.5); HGB HCT DIFFERENCE 0.5; MEAN CORPUSCULAR HEMOGLOBIN 29.6 pg (27.0-33.4); MEAN CORPUSCULAR VOLUME 87 fl (80-97); RED BLOOD COUNT 3.42 10^6/uL (3.72-5.28); RED CELL DISTRIBUTION WIDTH 16.3 % (11.5-14.0); WHITE BLOOD COUNT 7.8 10^3/uL (4.0-10.5)
[2016-11-06] MEDS: DOCUSATE SODIUM 100 MG CAPSULE PO SCH ×2 (09:21→19:19)
[2016-11-06] MEDS: PRENATAL VITAMIN W-O CA NO5/FE FUMARATE/FA CAPSULE PO SCH (09:21)
--- NOTE | 2016-11-06 10:47 | PDOC PROGRESS REPORT ---
Subjective-OB Subjective: Post Delivery Day: 1 36 year old. Denies any needs at this time, lochia is stable, pain is well controlled, voiding without difficulty. Passing gas, tolerating diet. Physical Exam (OB) Vital Signs: Temp Pulse Resp BP Pulse Ox 97.6 F 78 16 117/76 99 11/06/16 08:26 11/06/16 08:26 11/06/16 08:26 11/06/16 08:26 11/06/16 08:26 Intake & Output 11/05/16 11/06/16 11/07/16 06:59 06:59 06:59 Intake Total 1275 Output Total 1250 Balance 25 Weight 106.14 kg - Dressing Removed: Yes - medipore dressing removed Incision: Dressing - Lochia Lochia Amount: Scant < 10 ml Lochia Color: Rubra/Red - Abdomen Description: Tender, Soft, Round Hernia Present: No Fundal Description: Firm, Midline Fundal Height: u/u - u/2 Objective-Diagnostic Laboratory: 11/06/16 07:05 11/06/16 07:05 WBC 7.8 RBC 3.42 L Hgb 10.1 L Hct 29.8 L MCV 87 MCH 29.6 MCHC 34.0 RDW 16.3 H Plt Count 221 Assessment and Plan(PN) - Assessment and Plan (1) Status post repeat low transverse section Is this a current diagnosis for this admission?: YesPlan: routine pp care - Time Spent with Patient Time with patient: Less than 15 minutes Critical Time spent with patient: Less than 15 minutes
[2016-11-07] MEDS: IBUPROFEN 800 MG TABLET PO SCH ×2 (00:58→06:24)
[2016-11-07] MEDS: OXYCODONE-ACETAMINOPHEN 5-325 MG TABLET PO PRN ×2 (04:31→09:50)
--- NOTE | 2016-11-07 09:21 | PDOC DISCHARGE SUMMARY ---
Final Diagnosis Discharge Date: 11/07/16 - Final Diagnosis (1) Status post repeat low transverse section Is this a current diagnosis for this admission?: Yes Discharge Data - Discharge Medication Home Medications: Albuterol Sulfate [Albuterol Sulfate 5mg/1 mL] 1 vial IH PRN PRN 08/02/16 Ferrous Sulfate [Feosol] 325 mg PO DAILY 09/18/16 Pnv95/Ferrous Fumarate/FA [ Vitamins Tablet] 1 each PO DAILY 10/30/16 Docusate Sodium [Colace 100 mg Capsule] 100 mg PO BID #60 capsule 11/07/16 Ibuprofen [Motrin 800 mg Tablet] 800 mg PO Q6 #60 tablet 11/07/16 Oxycodone HCl/Acetaminophen [Percocet 5-325 mg Tablet] 2 tab PO Q4HP PRN #30 tablet 11/07/16 Gestational Age: 39 Reason(s) for Admission: Ceasarean Section-Repeat Procedures: NST Intrapartum Procedure(s): : Low Cervical, Transverse - [place] Data Baby 1 Male at 1 minute: 8 at 5 minutes: 9 Weight: 3.062 kg Home with Mother: Yes Complications: No - Diagnosis Test Laboratory: Temp Pulse Resp BP Pulse Ox 98.3 F 92 17 145/86 H 97 11/07/16 07:50 11/07/16 07:50 11/07/16 07:50 11/07/16 07:50 11/07/16 07:50 11/04/16 11/04/16 11/06/16 09:30 09:35 07:05 RBC 4.17 3.42 L Hgb 12.1 10.1 L Hct 36.1 29.8 L Urine Opiates Screen NEGATIVE - Discharge information/Instructions Discharge Activity: Balance Activity w/Rest, No Driving, No Lifting Over 10 Pounds, Pelvic Rest, No tub bath Discharge Diet: Regular Disposition: HOME, SELF-CARE Follow up with: [facility] in: 1, Weeks
[2016-11-07] MEDS: PRENATAL VITAMIN W-O CA NO5/FE FUMARATE/FA CAPSULE PO SCH (09:51)
[2016-11-07] MEDS: DOCUSATE SODIUM 100 MG CAPSULE PO SCH (09:51)
[2016-11-07 10:08] VITALS: BP 131/65
--- NOTE | 2016-12-22 13:23 | OPERATIVE REPORT E ---
Operative Report NAME: MURALI GARCIA : 1980 AGE: 36Y DATE OF SURGERY: ROOM: 225 PREOPERATIVE DIAGNOSES: 1. A 39-week intrauterine . 2. History of section for repeat. 3. Patient desiring permanent sterilization. POSTOPERATIVE DIAGNOSES: 1. A 39-week intrauterine . 2. History of section for repeat. 3. Patient desiring permanent sterilization. OPERATION: 1. Repeat low transverse section. 2. Bilateral tubal ligation using Filshie clips. SURGEON: Kayden Borjas D.O. ANESTHESIA: Spinal. COMPLICATIONS: None. ESTIMATED BLOOD LOSS: 600 mL. PATHOLOGY: Placenta. FINDINGS: 1. Viable male infant at 13:41 hours on 11/05/2016. Apgars 8 at 1 minute and 9 at 5 minutes. 2. Normal-appearing bilateral fallopian tubes and ovaries. PROCEDURE: The patient was taken to the operating room where spinal anesthesia was administered. Once this was done, she was placed in a dorsal supine position with a leftward tilt upon the operative table. She was then prepped and draped in normal sterile fashion. A scalpel was then used to make a Pfannenstiel skin incision. The skin incision was carried down through the subcutaneous tissue to the layer of the fascia. The fascia was incised in the midline. The fascial incision was then extended using the Bovie cautery. The superior fascial edge was grasped with Kimani clamps, elevated and the rectus muscles were dissected off sharply and bluntly. Attention was then turned to the inferior fascial edge which was grasped with Kimani clamps, elevated and the rectus muscles dissected off sharply and bluntly. The rectus muscles were then in the midline. The peritoneum identified and entered bluntly with the surgeon's hands. A bladder blade was inserted. A scalpel was then used to make a low transverse hysterotomy incision. The baby was found to be in the cephalic position and delivered to this incision without difficulty and atraumatically. The nose and mouth were suctioned. The cord was clamped and cut and the was handed off to the waiting nurses. Cord blood was obtained. The placenta was then manually removed from the uterus. The uterus was then exteriorized and cleared of all clots and debris. The hysterotomy incision was then reapproximated using 2 layers of 1-0 Vicryl in a running locking fashion. Following closure of the second layer, excellent hemostasis was noted. Following this, a Filshie clip was placed on the midportion of each fallopian tube without difficulty. The uterus was then returned to the abdomen. Again, the hysterotomy incision was reinspected and found to have excellent hemostasis. The rectus muscles were then reapproximated using 1-0 Vicryl interrupted sutures. The fascia was then closed using 1-0 Vicryl in a running non-locking fashion. The subcutaneous space was made hemostatic using Bovie cautery and irrigated. The skin was then closed with absorbable lynda, covered with an OpSite and then with a pressure dressing. At this point in time, the procedure was terminated. All sponge, lap and needle counts were correct x2. The patient tolerated the procedure well. The patient was taken to recovery in stable condition. DICTATING PHYSICIAN: Kayden Borjas DO [id number] PHY#: [id number] ID: [id number] JOB#: [id number] ACCT: [id number] cc:Kayden Borjas D.O. >
== END 2016-11-07 12:10 | disposition home or self-care (01) | DRG 765 ==
LOC: 2S 09:26
PROVIDERS: ADMIT Obstetrics & Gynecology; ATTEND Obstetrics & Gynecology
PROC: 0UL70CZ Occlusion of Bilateral Fallopian Tubes with Extraluminal Device, Open Approach (ICD-10-PCS; 2016-11-05)
PROC: 10D00Z1 Extraction of Products of Conception, Low, Open Approach (ICD-10-PCS; principal; 2016-11-05 12:30)
DX: O34.211 Maternal care for low transverse scar from previous cesarean delivery (principal); O36.5930 Maternal care for other known or suspected poor fetal growth, third trimester, not applicable or unspecified; O75.89 Other specified complications of labor and delivery; O99.214 Obesity complicating childbirth; J45.909 Unspecified asthma, uncomplicated; Z3A.39 39 weeks gestation of pregnancy; Z37.0 Single live birth; Z30.2 Encounter for sterilization
CPT/HCPCS: 1961; 36415; 80307; 81001; 85025; 85027; 86850; 86900; 86901; J0131; J0690; J1170; J1885; J2250; J2370; J2405; J2590; J3010; J3490; J7120

== ENCOUNTER 2016-11-10 11:33 | Emergency (ER) | payer MEDICAID ==
[2016-11-10] MEDS ORDERED: ACETAMINOPHEN 325 MG TABLET PO ONE (12:13)
--- NOTE | 2016-11-10 12:14 | ER Document Report ---
Addendum entered and electronically signed by GERMAN JOINER NP 11/10/16 12:17 : Course - Re-evaluation Re-evalutation: 11/10/16 12:[address] Herrera who recommends adding on an LDH as well as uric acid - Vital Signs Vital signs: Temp Pulse Resp BP Pulse Ox 99.0 F 81 18 148/93 H 99 11/10/16 12:07 11/10/16 12:07 11/10/16 12:07 11/10/16 12:07 11/10/16 12:07 Original Note: ED Medical Screen (RME) - General Stated Complaint: POST SURGICAL COMPLICATION Mode of Arrival: Wheelchair Information source: Patient Notes: Patient is status post 5 days ago. Patient reports lower extremity swelling that started 2 days ago. Patient does complain of a headache. Patient only reports mild lower abdominal pain due to her . hx: Asthma,pcos I have greeted and performed a rapid initial assessment of this patient. A comprehensive ED assessment and evaluation of the patient, analysis of test results and completion of the medical decision making process will be conducted by additional ED providers. TRAVEL OUTSIDE OF THE [place] IN LAST 30 DAYS: No - Related Data Allergies/Adverse Reactions: No Known Allergies Allergy (Verified 11/10/16 12:08) Past Medical History - Past Medical History Cardiac Medical History: Reports: Hx Hypertension - tx [id number], hx of preeclampsia 2014, not currently on medication anymore, Hx Heart Murmur - as a baby Denies: Hx Pulmonary Embolism Pulmonary Medical History: Reports: Hx Asthma, Hx Bronchitis Denies: Hx Sleep Apnea, Hx Tuberculosis Neurological Medical History: Denies: Hx Cerebrovascular Accident, Hx Seizures Endocrine Medical History: Denies: Hx Hyperthyroidism, Hx Hypothyroidism Renal/ Medical History: Reports: Hx Ovarian Cysts - PCOS, hx of Polyp with . Denies: Hx Kidney Stones, Hx Pelvic Inflammatory Disease Malignancy Medical History: Denies: Hx Breast Cancer, Hx Cervical Cancer, Hx Ovarian Cancer GI Medical History: Denies: Hx Gastroesophageal Reflux Disease, Hx Hiatal Hernia , Hx Ulcer Musculoskeltal Medical History: Denies Hx Fibromyalgia Psychiatric Medical History: Reports: Hx Anxiety, Hx Bipolar Disorder - reports needs to see physician about diagnosis, Hx Depression - occasional, Hx Post Traumatic Stress Disorder Denies: Hx Schizophrenia Traumatic Medical History: Denies: Hx Fractures Infectious Medical History: Denies: Hx HIV Past Surgical History: Reports: Hx Section, Hx Orthopedic Surgery - Immunizations Immunizations up to date: Yes Hx Diphtheria, Pertussis, Tetanus Vaccination: Yes Physical Exam - Vital signs Vitals: Temp Pulse Resp BP Pulse Ox 99.0 F 81 18 148/93 H 99 11/10/16 12:07 11/10/16 12:07 11/10/16 12:07 11/10/16 12:07 11/10/16 12:07 - Extremities General lower extremity: Edema - Bilateral lower extremities Course - Vital Signs Vital signs: Temp Pulse Resp BP Pulse Ox 99.0 F 81 18 148/93 H 99 11/10/16 12:07 11/10/16 12:07 11/10/16 12:07 11/10/16 12:07 11/10/16 12:07
[2016-11-10 13:51] LABS: ABSOLUTE EOSINOPHILS # (AUTO) 0.2 10^3/uL (0.0-0.6); ABSOLUTE LYMPHOCYTES (AUTO) 1.4 10^3/uL (0.5-4.7); ABSOLUTE MONOCYTES (AUTO) 0.5 10^3/uL (0.1-1.4); ABSOLUTE NEUT (AUTO) 4.4 10^3/uL (1.7-8.2); BASOPHILS % (AUTO) 0.4 % (0-2); EOSINOPHILS % (AUTO) 3.7 % (0-6); HEMATOCRIT 30.8 % (36.0-47.0); HEMOGLOBIN 10.3 g/dL (12.0-15.5); HGB HCT DIFFERENCE 0.1; LYMPHOCYTES % (AUTO) 21.9 % (13-45); MEAN CORPUSCULAR HEMOGLOBIN 29.3 pg (27.0-33.4); MEAN CORPUSCULAR HGB CONC 33.5 g/dL (32.0-36.0); MEAN CORPUSCULAR VOLUME 88 fl (80-97); MONOCYTES % (AUTO) 7.1 % (3-13); RED BLOOD COUNT 3.52 10^6/uL (3.72-5.28); RED CELL DISTRIBUTION WIDTH 16.3 % (11.5-14.0); SEGMENTED NEUTROPHILS % (AUTO) 66.9 % (42-78); WHITE BLOOD COUNT 6.6 10^3/uL (4.0-10.5)
[2016-11-10 14:11] LABS: ALANINE AMINOTRANSFERASE 29 U/L (9-52); ALBUMIN 3.1 g/dL (3.5-5.0); ALKALINE PHOSPHATASE 113 U/L (38-126); ANION GAP 10 (5-19); ASPARTATE AMINO TRANSFERASE 24 U/L (14-36); BILIRUBIN,TOTAL 0.3 mg/dL (0.2-1.3); BLOOD UREA NITROGEN 8 mg/dL (7-20); CALCIUM 9.2 mg/dL (8.4-10.2); CARBON DIOXIDE 27 mmol/L (22-30); CHLORIDE 106 mmol/L (98-107); CREATININE RESULT 0.48 mg/dL (0.52-1.25); GLUCOSE 72 mg/dL (75-110); LDH 537 U/L (313-618); POTASSIUM 4.1 mmol/L (3.6-5.0); SODIUM 142.7 mmol/L (137-145); TOTAL PROTEIN 6.3 g/dL (6.3-8.2)
--- NOTE | 2016-11-10 17:45 | ER Document Report ---
ED Extremity Problem, Lower - General Mode of Arrival: Wheelchair Information source: Patient TRAVEL OUTSIDE OF THE [place] IN LAST 30 DAYS: No - HPI Patient complains to provider of: Swelling Location: Ankle - bilateral, Foot - bilateral Occurred: Other - 2 days ago Associated symptoms: Other - see above <ZABRINA REEDER - Last Filed: 11/10/16 18:55> <POLLY IVEY - Last Filed: 11/10/16 19:38> - General Chief Complaint: Feet Swelling Stated Complaint: POST SURGICAL COMPLICATION Notes: 36-year-old female with history of preeclampsia during her first presents to the ED complaining of swelling to the bilateral lower feet that started 2 days ago. Patient states that she had one episode of difficulty breathing this morning. Patient recently had a performed by Dr. Ospina and tubal ligation the same time. Patient is mobile and denies any dysuria. Patient denies having any problems with hypertension throughout her most recent . (ZABRINA REEDER) - Related Data Allergies/Adverse Reactions: No Known Allergies Allergy (Verified 11/10/16 12:08) Past Medical History - General Information source: Patient - Social History Smoking Status: Never Smoker Chew tobacco use (# tins/day): No Frequency of alcohol use: None Drug Abuse: None Family History: CVA, Other - Grandmother with a DVT. Patient has suicidal ideation: No Patient has homicidal ideation: No - Past Medical History Cardiac Medical History: Reports: Hx Hypertension - tx [id number], hx of preeclampsia 2014, not currently on medication anymore, Hx Heart Murmur - as a baby Pulmonary Medical History: Reports: Hx Asthma, Hx Bronchitis Renal/ Medical History: Reports: Hx Ovarian Cysts - PCOS, hx of Polyp with Psychiatric Medical History: Reports: Hx Anxiety, Hx Bipolar Disorder - reports needs to see physician about diagnosis, Hx Depression - occasional, Hx Post Traumatic Stress Disorder Past Surgical History: Reports: Hx Section - x2, Hx Orthopedic Surgery - Immunizations Immunizations up to date: Yes Hx Diphtheria, Pertussis, Tetanus Vaccination: Yes <ZABRINA REEDER - Last Filed: 11/10/16 18:55> Review of Systems - Review of Systems Constitutional: No symptoms reported EENT: No symptoms reported Cardiovascular: No symptoms reported Respiratory: No symptoms reported Gastrointestinal: See HPI, Nausea, Vomiting Genitourinary: No symptoms reported Female Genitourinary: No symptoms reported Musculoskeletal: See HPI, Ankle swelling, Other - swelling to the bilateral feet Skin: No symptoms reported Hematologic/Lymphatic: No symptoms reported Neurological/Psychological: No symptoms reported -: Yes All other systems reviewed and negative <ZABRINA REEDER - Last Filed: 11/10/16 18:55> Physical Exam - General General appearance: Alert In distress: None - HEENT Head: Normocephalic, Atraumatic Eyes: Normal Extraocular movements intact: Yes Pupils: PERRL - Respiratory Respiratory status: No respiratory distress Breath sounds: Normal - Cardiovascular Rhythm: Regular Heart sounds: Normal auscultation - Abdominal Inspection: Normal Distension: No distension Bowel sounds: Normal Tenderness: Nontender - Back Back: Normal - Extremities General upper extremity: Normal inspection, Normal ROM General lower extremity: Normal inspection, Edema - Trace bilateral lower extremity nonpitting edema, Normal ROM - Neurological Neuro grossly intact: Yes Cognition: Normal Orientation: AAOx4 Evans Coma Scale Eye Opening: Spontaneous Gwen Coma Scale Verbal: Oriented Evans Coma Scale Motor: Obeys Commands Gwen Coma Scale Total: 15 Speech: Normal - Psychological Associated symptoms: Normal affect, Normal mood - Skin Skin Temperature: Warm Skin Moisture: Dry Skin Color: Normal <ZABRINA REEDER - Last Filed: 11/10/16 18:55> <POLLY IVEY - Last Filed: 11/10/16 19:38> - Vital signs Vitals: Temp Pulse Resp BP Pulse Ox 99.0 F 81 18 148/93 H 99 11/10/16 12:07 11/10/16 12:07 11/10/16 12:07 11/10/16 12:07 11/10/16 12:07 (ZABRINA REEDER) (POLLY IVEY) Course - Laboratory Result Diagrams: 11/10/16 13:30 11/10/16 13:30 <ZABRINA REEDER - Last Filed: 11/10/16 18:55> - Laboratory Result Diagrams: 11/10/16 13:30 11/10/16 13:30 <POLLY IVEY - Last Filed: 11/10/16 19:38> - Re-evaluation Re-evalutation: 11/10/16 19:33 I personally performed the services described in the documentation, reviewed and edited the documentation which was dictated to my scribe in my presence, and it accurately records my words and actions. Patient presents to the emergency department with swelling in her feet. She has no chest pain no shortness breath negative x-ray for congestive heart failure negative baseline renal function. Patient has protein in her urine blood pressure 148/93 recheck 140/93. Spoke with Dr. Rosa who is on-call for OB/ SENIOR QA ANALYST and states that they will see her in the office on Wednesday for blood pressure recheck and discussed reasons for ED return sooner (POLLY IVEY) - Vital Signs Vital signs: Temp Pulse Resp BP Pulse Ox 98.6 F 74 18 140/93 H 99 11/10/16 18:52 11/10/16 19:32 11/10/16 19:32 11/10/16 19:32 11/10/16 19:32 (ZABRINA REEDER) (POLLY IVEY) - Laboratory Laboratory results interpreted by me: 11/10/16 11/10/16 11/10/16 13:30 13:30 17:35 RBC 3.52 L Hgb 10.3 L Hct 30.8 L RDW 16.3 H Creatinine 0.48 L Glucose 72 L Albumin 3.1 L Urine Protein 30 H Urine Blood LARGE H Ur Leukocyte Esterase SMALL H (ZABRINA REEDER) (POLLY IVEY) Discharge <ZABRINA REEDER - Last Filed: 11/10/16 18:55> <POLLY IVEY - Last Filed: 11/10/16 19:38> - Discharge Clinical Impression: Swollen feet Proteinuria Qualifiers: Proteinuria type: unspecified Qualified Code(s): R80.9 - Proteinuria, unspecified Condition: Stable Disposition: HOME, SELF-CARE Additional Instructions: Edema, Peripheral You have swelling in your legs. This is called peripheral edema. It can be caused by "leaky capillaries," inflammation, disease of the leg veins, or excess salt and water in your body. Edema may be a sign of heart, kidney, or liver disease. A medical evaluation can determine if there is a serious underlying cause for your edema. Avoid prolonged standing. If you must sit for a long time, occasionally get up and walk around or elevate your legs. Support stockings can be helpful in limiting swelling. Often diuretic or water pills are used to remove excess salt and water from your body. Call the doctor or return if you develop increased swelling, pain, or redness, shortness of breath, chest pain, or any other significant change. Referrals: RUPA HOLLIS MD [Primary Care Provider] - Follow up in 3-5 days (in 2-3 days return to er sooner for increasing worsening or new symptoms) Scribe Documentation - Scribe Written by Merline:: Sunil Markham, 11/10/2016 1915 acting as scribe for :: Hunter <ZABRINA REEDER - Last Filed: 11/10/16 18:55>
[2016-11-10 18:40] LABS: APPEARANCE,URINE SLIGHTLY-CLOUDY; BILIRUBIN,URINE NEGATIVE (NEGATIVE); GLUCOSE, URINE NEGATIVE (NEGATIVE); KETONES,URINE NEGATIVE (NEGATIVE); LEUKOCYTE ESTERASE,URINE SMALL (NEGATIVE); NITRITE,URINE NEGATIVE (NEGATIVE); PROTEIN,URINE 30 mg/dL (NEGATIVE); URINE SPECIFIC GRAVITY 1.012; UROBILINOGEN,URINE NEGATIVE mg/dL (<2.0)
[2016-11-10 20:42] VITALS: BP 140/89
== END 2016-11-10 20:40 | disposition home or self-care (01) ==
LOC: ER 11:33
DX: O12.15 Gestational proteinuria, complicating the puerperium (principal); O90.89 Other complications of the puerperium, not elsewhere classified; M79.89 Other specified soft tissue disorders; Z98.51 Tubal ligation status
CPT/HCPCS: 99284; 36415; 83615; 84550; 85025; 80053; 81001; 71020; J3490

== ENCOUNTER 2017-05-29 00:21 | Emergency (ER) | payer MEDICAID ==
--- NOTE | 2017-05-29 00:53 | ER Document Report ---
ED Extremity Problem, Upper - General Chief Complaint: Arm Pain Stated Complaint: ARM PAIN Time Seen by Provider: 05/29/17 00:41 TRAVEL OUTSIDE OF THE [place] IN LAST 30 DAYS: No - HPI Notes: 37-year-old iuutb-halw-eczhmdhy female with no significant medical problems presents with left elbow pain. She has had pain for about a week. She had a fairly active day and noticed she was having pain in her left elbow particularly when she bends it. She thought it might be just a little bit of arthritis but is continued to hurt despite using ibuprofen 800 mg. Denies any fall or trauma. Tonight she had a very sharp pain and it made it where she had to put her baby down all of a sudden. Because of the pain causing her to almost drop her child, she presents tonight. Pain is worse with movement. She has no associated symptoms, chest pain or breathing difficulty. No shoulder pain or distal pain but movement of the wrist does cause some discomfort as well. She has noted no palpable "knots" or cords. There is been no injection or other penetrating issue. - Related Data Allergies/Adverse Reactions: No Known Allergies Allergy (Verified 11/10/16 12:08) Past Medical History - Social History Smoking Status: Never Smoker Family History: CVA, Other - Grandmother with a DVT. Patient has suicidal ideation: No Patient has homicidal ideation: No - Past Medical History Cardiac Medical History: Reports: Hx Hypertension - tx [id number], hx of preeclampsia 2014, not currently on medication anymore, Hx Heart Murmur - as a baby Denies: Hx Pulmonary Embolism Pulmonary Medical History: Reports: Hx Asthma, Hx Bronchitis Denies: Hx Sleep Apnea, Hx Tuberculosis Neurological Medical History: Denies: Hx Cerebrovascular Accident, Hx Seizures Endocrine Medical History: Denies: Hx Diabetes Mellitus Type 2, Hx Hyperthyroidism, Hx Hypothyroidism Renal/ Medical History: Reports: Hx Ovarian Cysts - PCOS, hx of Polyp with . Denies: Hx Kidney Stones, Hx Peritoneal Dialysis, Hx Pelvic Inflammatory Disease Malignancy Medical History: Denies: Hx Breast Cancer, Hx Cervical Cancer, Hx Ovarian Cancer GI Medical History: Denies: Hx Gastroesophageal Reflux Disease, Hx Hiatal Hernia , Hx Ulcer Musculoskeltal Medical History: Denies Hx Fibromyalgia Psychiatric Medical History: Reports: Hx Anxiety, Hx Bipolar Disorder - reports needs to see physician about diagnosis, Hx Depression - occasional, Hx Post Traumatic Stress Disorder Denies: Hx Schizophrenia Traumatic Medical History: Denies: Hx Fractures Infectious Medical History: Denies: Hx HIV Past Surgical History: Reports: Hx Section - x2, Hx Orthopedic Surgery - Immunizations Immunizations up to date: Yes Hx Diphtheria, Pertussis, Tetanus Vaccination: Yes Review of Systems - Review of Systems -: Yes All other systems reviewed and negative Physical Exam - Vital signs Vitals: Temp Pulse Resp BP Pulse Ox 98.8 F 71 18 132/105 H 99 05/29/17 00:28 05/29/17 00:28 05/29/17 00:28 05/29/17 00:28 05/29/17 00:28 Interpretation: Hypertensive - Notes Notes: GENERAL: VS as per nursing doc. Well-appearing, well-nourished and in no acute distress. HEAD: Atraumatic, normocephalic. EYES:Sclera anicteric, no conjunctival injection or discharge. ENT: Moist mucous membranes. NECK: Normal range of motion, no pain elicited with movement LUNGS: Breath sounds clear to auscultation bilaterally and equal. No wheezes rales or rhonchi. HEART: Regular rate and rhythm without murmurs. 2+ radial pulse EXTREMITIES: No palpable cords. No notable edema. There is tenderness over the radial head and reproducible pain with supination/pronation as well as flexion and extension. Pain appears more along the joint line over the region of the radial head. No crepitance is noted. NEUROLOGICAL: Normal speech. Normal sensory and motor exams though notable pain with left elbow movement. PSYCH: Normal mood, normal affect. SKIN: Warm, dry, no erythema, no puncture wounds. No fluctuance Course - Re-evaluation Re-evalutation: 05/29/17 01:36 I discussed findings with the patient. It does appear more consistent with joint inflammatory issues rather but some consideration for tendinitis. - Vital Signs Vital signs: Temp Pulse Resp BP Pulse Ox 98.8 F 71 18 132/105 H 99 05/29/17 00:28 05/29/17 00:28 05/29/17 00:28 05/29/17 00:28 05/29/17 00:28 Discharge - Discharge Clinical Impression: Pain in joint of left elbow Condition: Good Disposition: HOME, SELF-CARE Additional Instructions: Sling as Treatment A sling has been applied to protect the injury. This is adequate immobilization for this type of injury -- no cast or brace is required. Keep the sling on at all times until instructed to remove it by the doctor. Even though no cast or splint is needed, you must use the sling. If you use the arm too soon, it may not heal properly! If necessary, the sling can be adjusted for comfort. Return if you are encountering problems with the sling. Continue an anti-inflammatory such as ibuprofen or Aleve. Use the sling to rest your elbow and use limited activity. Make sure you maintain shoulder range of motion as discussed. Return for fever, redness developing or other change. Forms: Elevated Blood Pressure Referrals: ARACELIS SWANSON MD [Primary Care Provider] - Follow up in 3-5 days
--- NOTE | 2017-05-29 01:38 | RADIOLOGY REPORT (SQ) ---
EXAM DESCRIPTION: ELBOW LEFT OVER 2 VIEWS COMPLETED DATE/TIME: 05/29/2017 1:13 am REASON FOR STUDY: Left Elbow pain COMPARISON: None. NUMBER OF VIEWS: Four views. TECHNIQUE: AP, lateral, and both oblique radiographic images acquired of the left elbow. LIMITATIONS: None. FINDINGS: MINERALIZATION: Normal. BONES: No acute fracture or dislocation. No worrisome bone lesions. JOINT: No effusion. SOFT TISSUES: No soft tissue swelling. No foreign body. OTHER: No other significant finding. IMPRESSION: NEGATIVE STUDY OF THE LEFT ELBOW. NO RADIOGRAPHIC EVIDENCE OF ACUTE INJURY. TECHNICAL DOCUMENTATION: JOB ID: [id number] [employer]- All Rights Reserved
[2017-05-29 02:05] VITALS: BP 134/88
== END 2017-05-29 02:06 | disposition home or self-care (01) ==
LOC: ER 00:21
DX: M25.522 Pain in left elbow (principal); M79.602 Pain in left arm
CPT/HCPCS: 99283

== ENCOUNTER 2018-02-21 13:32 | Emergency (ER) | payer MEDICAID ==
--- NOTE | 2018-02-21 16:28 | ER Document Report ---
ED Extremity Problem, Lower - General Chief Complaint: Knee Pain Stated Complaint: LEFT KNEE PAIN Mode of Arrival: Ambulatory Information source: Patient TRAVEL OUTSIDE OF THE [place] IN LAST 30 DAYS: No - HPI Notes: 37-year-old female presents emergency department for evaluation of left knee pain for approximately 5 months. Patient denies any injury or trauma. Patient reports that she has been seen by her primary care provider and has been going to physical therapy. Patient reports that the knee was getting better then she thinks she tweaked it while chasing her kids. Patient reports that she has pain when walking upstairs. He denies any numbness or weakness to lower extremity. Denied any other symptoms. - Related Data Allergies/Adverse Reactions: No Known Allergies Allergy (Verified 11/10/16 12:08) Past Medical History - General Information source: Patient - Social History Smoking Status: Never Smoker Chew tobacco use (# tins/day): No Frequency of alcohol use: None Drug Abuse: None Family History: CVA, Other - Grandmother with a DVT. Patient has suicidal ideation: No Patient has homicidal ideation: No - Past Medical History Cardiac Medical History: Reports: Hx Hypertension - tx [id number], hx of preeclampsia 2014, not currently on medication anymore, Hx Heart Murmur - as a baby Denies: Hx Pulmonary Embolism Pulmonary Medical History: Reports: Hx Asthma, Hx Bronchitis Denies: Hx Sleep Apnea, Hx Tuberculosis Neurological Medical History: Denies: Hx Cerebrovascular Accident, Hx Seizures Endocrine Medical History: Denies: Hx Diabetes Mellitus Type 2, Hx Hyperthyroidism, Hx Hypothyroidism Renal/ Medical History: Reports: Hx Ovarian Cysts - PCOS, hx of Polyp with . Denies: Hx Kidney Stones, Hx Peritoneal Dialysis, Hx Pelvic Inflammatory Disease Malignancy Medical History: Denies: Hx Breast Cancer, Hx Cervical Cancer, Hx Ovarian Cancer GI Medical History: Denies: Hx Gastroesophageal Reflux Disease, Hx Hiatal Hernia , Hx Ulcer Musculoskeltal Medical History: Denies Hx Fibromyalgia Psychiatric Medical History: Reports: Hx Anxiety, Hx Bipolar Disorder - reports needs to see physician about diagnosis, Hx Depression - occasional, Hx Post Traumatic Stress Disorder Denies: Hx Schizophrenia Traumatic Medical History: Denies: Hx Fractures Infectious Medical History: Denies: Hx HIV Past Surgical History: Reports: Hx Section - x2, Hx Orthopedic Surgery - left ankle - Immunizations Immunizations up to date: Yes Hx Diphtheria, Pertussis, Tetanus Vaccination: Yes Review of Systems - Review of Systems Notes: Patient denied any fever, rash, chest pain, shortness of breath, abdominal pain , nausea, vomiting, diarrhea, dysuria, or hematuria. Physical Exam - Vital signs Vitals: Temp Pulse Resp BP Pulse Ox 98.9 F 79 18 141/90 H 100 02/21/18 13:52 02/21/18 13:52 02/21/18 13:52 02/21/18 13:52 02/21/18 13:52 - Extremities Notes: PHYSICAL EXAMINATION: GENERAL: Well-appearing, well-nourished and in no acute distress. HEAD: Atraumatic, normocephalic. Musculoskeletal: Left knee: No gross deformity, swelling, joint effusion, erythema, or hot to the touch. Generalized to tenderness to the anterior and posterior knee with no focal bony tenderness. Decreased range of motion secondary to pain. Stable to anterior drawer and valgus/varus stress testing. Normal pedal pulse with brisk capillary refill. Light sensation intact. Distal neurovascular intact. NEUROLOGICAL: Antalgic gait. Normal balance, speech, and facial symmetry. PSYCH: Normal mood, normal affect. SKIN: Warm, Dry, normal turgor, no rashes or lesions noted. Course - Re-evaluation Re-evalutation: 02/21/18 16:49 Consistent with knee strain. No evidence of fracture, dislocation, or septic joint. The the head of other entities in the differential is insufficient to justify any further testing for them. I discussed care plan at length with patient. Any and all questions were answered. Patient was given Toradol and felt better. Discharged home with Mobic and crutches. Advised patient to follow-up with orthopedics in 2 weeks and to take medications as instructed. I also advised her to return immediately to the emergency department for any new, worsening, or concerning symptoms as discussed. She understands and agrees with plan. 02/21/18 17:09 - Vital Signs Vital signs: Temp Pulse Resp BP Pulse Ox 98.9 F 79 18 141/90 H 100 02/21/18 13:52 02/21/18 13:52 02/21/18 13:52 02/21/18 13:52 02/21/18 13:52 Discharge - Discharge Clinical Impression: Strain of left knee Qualifiers: Encounter type: initial encounter Qualified Code(s): S86.912A - Strain of unspecified muscle(s) and tendon(s) at lower leg level, left leg, initial encounter Condition: Stable Disposition: HOME, SELF-CARE Instructions: Use of Crutches ([facility]), Ice & Elevation ([facility]), Sprained Knee ([facility]) Additional Instructions: Please follow-up with orthopedics in 2 weeks and take medications as instructed. Return immediately to the emergency department for any new, worsening, or concerning symptoms as discussed. Prescriptions: Meloxicam [Mobic] 7.5 mg PO BID #30 tablet Referrals: MICHELLE SAMUELS DO [ACTIVE STAFF] - 03/07/18
[2018-02-21] MEDS ORDERED: KETOROLAC TROMETHAMINE 60 MG/2 ML SDV IM ONE (16:29)
[2018-02-21 17:25] VITALS: BP 142/80
== END 2018-02-21 17:25 | disposition home or self-care (01) ==
LOC: ER 13:32
DX: S86.912A Strain of unspecified muscle(s) and tendon(s) at lower leg level, left leg, initial encounter (principal); X58.XXXA Exposure to other specified factors, initial encounter; M25.562 Pain in left knee; I10 Essential (primary) hypertension; J45.909 Unspecified asthma, uncomplicated
CPT/HCPCS: 99283; 96372; J1885

== ENCOUNTER 2019-03-27 17:16 | Emergency (ER) | payer OTHER, MEDICAID ==
[2019-03-27 17:44] VITALS: BP 135/96
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
[2019-03-27] MEDS ORDERED: IBUPROFEN 600 MG TABLET PO ONE (20:24)
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
== END 2019-03-27 20:45 | disposition home or self-care (01) ==
LOC: ER 17:16
DX: S02.2XXA Fracture of nasal bones, initial encounter for closed fracture (principal); R51 Headache; V87.7XXA Person injured in collision between other specified motor vehicles (traffic), initial encounter; I10 Essential (primary) hypertension; J45.909 Unspecified asthma, uncomplicated
CPT/HCPCS: 70486; 99284

== ENCOUNTER 2019-04-25 23:57 | Emergency (ER) | payer OTHER, MEDICAID ==
[2019-04-26] MEDS ORDERED: ACETAMINOPHEN 325 MG TABLET PO ONE (00:37)
[2019-04-26 01:00] VITALS: BP 153/93
== END 2019-04-26 04:49 | disposition left against medical advice (07) ==
LOC: ER 23:57
DX: Z53.21 Procedure and treatment not carried out due to patient leaving prior to being seen by health care provider (principal)